=== PATIENT | male | born 1945 | race Caucasian/White ===

== ENCOUNTER 2020-01-09 09:19 | Inpatient (IN) | payer MEDICARE ==
[~2020-01-09] VITALS: Ht 180.3 cm; Wt 106.1 kg
[~2020-01-09 09:19] MED LIST: ASPIR 8181 MG PO; BENICAR20 MG; CIPRO500 MG PO; COLACE100 MG PO; COZAAR 50 MG TA50 M1 PO; FENOFIBRATE160 MG PO; FLAGYL500 MG PO; MOTILIUM; NEXIUM40 MG PO; PRILOSEC40 MG; SIMVASTATIN40 MG PO; TIMOLOL GL0.5 %/5 M1 OP; TOPROL XL25 MG PO; TOUJEO SOL300 UNIT/1 SQ; TRAVATAN Z2.5 ML OPHTHALMIC; TRESIBA FL100 UNIT/1 SUBQ; TUSSIONEX PENN473 ML PO; ZPAK PO; [UNRECOGNIZED DRUG - OTHER]
[2020-01-09 09:21] VITALS: BP 138/76
[2020-01-09] MEDS ORDERED: NOVOLOG100 UNIT/M SUBQ (09:25)
[2020-01-09 09:41] LABS: ABSOLUTE EOSINOPHILS 0.1 thou/uL (0.0-0.7); ABSOLUTE LYMPHOCYTES 2.7 thou/uL (0.8-5.3); ABSOLUTE MONOCYTES 0.5 thou/uL (0.0-1.2); ABSOLUTE NEUTROPHILS 2.9 thou/uL (1.6-8.1); BASOPHILS 0.6 %; EOSINOPHILS 1.7 %; LYMPHOCYTES 42.5 %; MCH 31.4 pg (26.0-34.0); MCV 92.1 fL (80.0-100.0); MONOCYTES 8.5 %; NUCLEATED RBCS 0 /100WBC; PLATELET COUNT* 124 thou/uL (150-400); POLYS 46.7 %; RBC 4.77 mil/uL (4.50-6.00); RDW-CV 14.7 % (10.5-14.5); WBC 6.3 thou/uL (4.0-11.0)
[2020-01-09 09:54] LABS: CALCIUM 9.2 mg/dL (8.5-10.1); CREATININE 1.9 mg/dL (0.6-1.3); POTASSIUM 4.3 mmol/L (3.5-5.1)
[2020-01-09 10:09] LABS: ALBUMIN 3.8 g/dL (3.4-5.0); CK-MB MASS 2.6 ng/mL (<0.5-3.6); MAGNESIUM 1.8 mg/dL (1.8-2.4); TOTAL BILIRUBIN 0.6 mg/dL (<0.1-1.0); TOTAL PROTEIN 7.5 g/dL (6.4-8.2)
[2020-01-09 10:19] LABS: INR 1.1; PROTIME 11.2 Seconds (9.20-11.50)
[2020-01-09 12:20] VITALS: BP 131/66
[2020-01-09 12:57] VITALS: BP 132/73
--- NOTE | 2020-01-09 13:04 | NUR ---
PT WAS ADMITTED FROM ED TO ROOM 215. PT AMBULATED TO BED. VSS, PT DENIES CHEST PAIN AT THIS TIME. MONITOR APPLIED. AT BEDSIDE. LAB CALLED WITH CRITICAL TROPONIN, REPORTED TO DR BRASHER.
[2020-01-09 16:34] VITALS: BP 141/76
[2020-01-09 16:35] VITALS: BP 123/62; BP 141/76
--- NOTE | 2020-01-09 17:07 | NUR ---
pt concerned about blood glucose being 195. states he normally takes 10 units with meals of short acting insulin plus sliding scale. all that is ordered is sliding scale for a total of 3 units. paged hospitalist research professional to get order for meal dose.
[2020-01-09 19:28] LABS: INR 1.1; PROTIME 11.7 Seconds (9.20-11.50)
[2020-01-09 19:29] LABS: ANION GAP 8 mmol/L (7-16); BUN 21 mg/dL (7-18); CALCIUM 9.2 mg/dL (8.5-10.1); CHLORIDE 107 mmol/L (98-107); CHOLESTEROL 123 mg/dL (<200); CO2 28 mmol/L (21-32); CREATININE 1.7 mg/dL (0.6-1.3); GLUCOSE 156 mg/dL (70-99); HDL CHOLESTEROL 35 mg/dL (>40); LDL CHOLESTEROL 64 mg/dL (<100); POTASSIUM 4.3 mmol/L (3.5-5.1); SODIUM 143 mmol/L (136-145); TC:HDL 3.5 Ratio (Not establshd); TRIGLYCERIDE 122 mg/dL (<150); VLDL 24 mg/dL (<40)
[2020-01-09 19:30] LABS: SERUM ASSESSMENT CLEAR
[2020-01-09 20:00] VITALS: BP 139/70
[2020-01-10] VITALS: BP 119/60
[2020-01-10 04:00] VITALS: BP 123/63
--- NOTE | 2020-01-10 05:13 | NUR ---
ASSESSMENT: PT REMAIN ALERT AND ORIENT TIMES FOUR. UP AD NBA WITH STEADY GAIT. DENIES CP, SOB AND N/V, VSS, AFEBRILE. PT WILL BE NPO TONIGHT FOR CATH WITH DR. FLORES. HEPARIN GTT AT 1280 UNITS. PTT SCHEDULUED FOR 629. TROP LEVEL ELEVATED = 112.34 Payton CAMPOS NOTIFIED. REPEAT TROP SCHEDULED FOR 629. SLOW PROGRESS TOWARDS DC GOALS, WILL CONTINUE TO MONITOR.
[2020-01-10 06:45] LABS: HEMATOCRIT 40.3 % (42.0-52.0); HEMOGLOBIN 13.8 gm/dL (14.0-18.0); MCH 31.2 pg (26.0-34.0); MCHC 34.2 g/dL (28.0-37.0); MCV 91.2 fL (80.0-100.0); MPV 9.3 fl. (7.2-11.1); RBC 4.42 mil/uL (4.50-6.00); RDW-CV 14.5 % (10.5-14.5); WBC 7.9 thou/uL (4.0-11.0)
[2020-01-10 07:06] LABS: CALCIUM 8.5 mg/dL (8.5-10.1); CREATININE 1.6 mg/dL (0.6-1.3); MAGNESIUM 1.6 mg/dL (1.8-2.4); POTASSIUM 4.4 mmol/L (3.5-5.1)
[2020-01-10 07:55] LABS: TROPONIN-I LEVEL 76.44 ng/mL (<0.06)
[2020-01-10 08:00] VITALS: BP 128/64
--- NOTE | 2020-01-10 14:04 | EKG ---
[place] [address] ELECTROCARDIOGRAM REPORT Name: ADDISON BARNARD Room: [address] ADM IN .R.#: [id number] Admission: 01/09/20 Attend Phys: Bhargavi Ortiz, Discharge: Date of : 45 Date of Service: 01/09/20 0922 Report #: [id number] THIS REPORT FOR: //name// [facility] ED Test Date: 2020-01-09 Test Time: 09:22:20 Pat Name: ADDISON BARNARD Department: Room: [facility] Gender: M Supply Specialist: DS : 1945 Requested By: Jason Goss Order Number: [id number] MD: Duke Aceves Measurements Intervals [place] Rate: 46 P: 0 CA: 70 QRS: 6 QRSD: 109 T: 21 QT: 453 QTc: 397 Interpretive Statements Sinus bradycardia Short [place] interval Compared to ECG 11/02/2016 09:13:55 Short CA interval now present Electronically Signed On 01-10-2020 14:04:08 ADJUNCT INSTRUCTOR CHEMISTRY by Duke Aceves [email or web address] <ELECTRONICALLY SIGNED> By: Duke Aceves MD, FACC 01/10/20 1404 1 1 Duke Aceves MD, FAC /EPI
[2020-01-10 16:04] VITALS: BP 121/62
[2020-01-10 20:00] VITALS: BP 141/68
[2020-01-11] VITALS (24 sets, daily range): BP systolic 90–140; BP diastolic 51–81
[2020-01-11 05:20] LABS: HEMATOCRIT 38.5 % (42.0-52.0); HEMOGLOBIN 13.2 gm/dL (14.0-18.0); MCH 31.3 pg (26.0-34.0); MCHC 34.2 g/dL (28.0-37.0); MCV 91.5 fL (80.0-100.0); MPV 9.3 fl. (7.2-11.1); RBC 4.2 mil/uL (4.50-6.00); RDW-CV 14.3 % (10.5-14.5); WBC 6.9 thou/uL (4.0-11.0)
[2020-01-11 05:39] LABS: CALCIUM 8.6 mg/dL (8.5-10.1); CREATININE 1.8 mg/dL (0.6-1.3); POTASSIUM 3.7 mmol/L (3.5-5.1)
[2020-01-11 05:44] LABS: TROPONIN-I LEVEL 31.29 ng/mL (<0.06)
--- NOTE | 2020-01-11 13:18 | NUR ---
Pt is A&O. Resides at home with , in room at bedside. Active and independent. No DME. No hx of HH or SNF. Goal is home at dc. Pt had a cath today, may need CABG in near future. Following.
--- NOTE | 2020-01-11 14:37 | 2DMMODE ---
[place] [address] 2 D/M-MODE ECHOCARDIOGRAM Name: ADDISON BARNARD Room: [address] IN [facility]#: [id number] Admission: 01/09/20 Attend Phys: Bhargavi Ortiz, Discharge: Date of : 45 Date of Service: 01/11/20 1437 Report #: [id number] THIS REPORT FOR: cc: FAM - No family physician/PCP FAM - No family physician/PCP Kevin Omalley MD [facility] ~ APPROVED REPORT Study performed: 01/11/2020 11:11:14 EXAM: Comprehensive 2D, Doppler, and color-flow Echocardiogram Patient Location: In-Patient Room #: [facility] Status: routine BSA: 2.26 HR: 52 bpm BP: 102/72 mmHg Rhythm: NSR Other Information Study Quality: Good Indications Non STEMI 2D Dimensions IVSd: 10.14 (7-11mm) LVOT Diam: 20.03 (18-24mm) LVDd: 50.55 mm PWd: 11.32 (7-11mm) Ascending Ao: 33.10 (22-36mm) LVDs: 34.62 (25-40mm) Aortic Root: 34.29 mm Volumes Left Atrial Volume (Systole) LA ESV Index: 20.20 mL/m2 Aortic Valve AoV Peak Thuan.: 1.04 m/s AO Peak Gr.: 4.36 mmHg LVOT Max P.71 mmHg AO Mean Gr.: 2.17 mmHg LVOT Mean P.07 mmHg LVOT Max V: 1.09 m/s AO V2 VTI: 19.23 cm LVOT Mean V: 0.66 m/s ABHILASH (VTI): 3.61 cm2 LVOT V1 VTI: 22.01 [place] [address] 2 D/M-MODE ECHOCARDIOGRAM Name: ADDISON BARNARD Room: [address] IN [facility].#: [id number] Admission: 01/09/20 Attend Phys: Bhargavi Ortiz, Discharge: Date of : 45 Date of Service: 01/11/20 1437 Report #: [id number] Mitral Valve E/A Ratio: 0.61 MV Decel. Time: 355.89 ms MV E Max Thuan.: 0.71 m/s MV PHT: 103.21 ms MVA (PHT): 2.13 cm2 TDI E/Lateral E': 7.89 E/Medial E': 10.14 Medial E' Thuan.: 0.07 m/s Lateral E' Thuan.: 0.09 m/s Pulmonary Valve PV Peak Thuan.: 0.86 m/s PV Peak Gr.: 2.93 mmHg Left Ventricle The left ventricle is normal size. There is normal LV segmental wall motion. There is normal left ventricular wall thickness. Left ventricular systolic function is normal. The left ventricular ejection fraction is within the normal range. LVEF is 55-60%. Grade I - abnormal relaxation pattern. Right Ventricle The right ventricle is normal size. The right ventricular systolic function is normal. Atria The left atrium size is normal. The right atrium size is normal. Aortic Valve The aortic valve is normal in structure. No aortic regurgitation is present. There is no aortic valvular stenosis. Mitral Valve The mitral valve is normal in structure. Trace mitral regurgitation. No evidence of mitral valve stenosis. Tricuspid Valve The tricuspid valve is normal in structure. Trace tricuspid regurgitation. Unable to assess PA pressure. Pulmonic Valve The pulmonary valve is normal in structure. There is no pulmonic [place] [address] 2 D/M-MODE ECHOCARDIOGRAM Name: ADDISON BARNARD Room: [address] IN [facility]#: [id number] Admission: 01/09/20 Attend Phys: Bhargavi Ortiz, Discharge: Date of : 45 Date of Service: 01/11/20 1437 Report #: [id number] Great Vessels The aortic root is normal in size. IVC is normal in size and collapses >50% with inspiration. Pericardium There is no pericardial effusion. <Conclusion> The left ventricle is normal size. There is normal left ventricular wall thickness. Left ventricular systolic function is normal. The left ventricular ejection fraction is within the normal range. LVEF is 55-60%. Grade I - abnormal relaxation pattern. The right ventricle is normal size. The left atrium size is normal. The aortic valve is normal in structure. The mitral valve is normal in structure. Trace mitral regurgitation. The tricuspid valve is normal in structure. IVC is normal in size and collapses >50% with inspiration. There is no pericardial effusion. There is normal LV segmental wall motion. <ELECTRONICALLY SIGNED> By: Kevin Omalley MD, FACC 01/11/20 1437 1437 1437 Kevin Omalley MD, FACC /INF
--- NOTE | 2020-01-11 16:00 | CARD ---
[address] [address] CARDIAC CATH REPORT Name: ADDISON BARNARD Room: [address] IN [facility]#: [id number] Admission: 01/09/20 Attend Phys: Bhargavi Ortiz MD Discharge: Date of : 45 Report #: [id number] THIS REPORT FOR: //name// cc: BJ - No family physician/PCP BJ - No family physician/PCP ~ APPROVED REPORT Study performed: 01/11/2020 09:28:00 Patient Details Patient Status: In-Patient Room #: 215 The patient is a 74 year-old male Event Personnel Kevin Omalley Shoulder Sawyer, Mirtha Bellamy RN Client Service Coordinator, Katarina Concepcion RTR Monitor, Evangelista Villanueva RTR Scrub Procedures Performed Art Access - R femoral artery, Left Heart Cath w/or w/o Coronaries LHC, Hemostasis w/ Mynx Indication Non-STEMI Risk Factors Hypercholesterolemia Previous Procedures/Diagnoses Previous PCI Procedure Narrative The patient was brought urgently to the Cardiac Catheterization Laboratory and was prepped and draped in a sterile manner. The right femoral was infiltrated with 2% Lidocaine subcutaneous anesthesia. A 6Fr X 23cm Brite tip sheath was inserted into the right femoral artery. Coronary angiography was performed using coronary diagnostic catheters. The right coronary system was accessed and visualized with a 6F 3DRC catheter. The left coronary system was accessed and visualized with a 6F JL4 catheter. The left ventricle was accessed and visualized with a 6F Straight Pigtail catheter. Left ventricular/Aortic Valve gradient assessed via catheter pullback. Pre-demployment femoral angiogram was performed . Closure device was deployed with a 6 Fr Mynx. The patient tolerated the procedure well and there were no complications [place] [address] CARDIAC CATH REPORT Name: ADDISON BARNARD Room: [address] IN [facility]#: [id number] Admission: 01/09/20 Attend Phys: Bhargavi Ortiz MD Discharge: Date of : 45 Report #: [id number] was no hematoma. A 6F Russell sheath was initially inserted into the right femoral artery. Due to tortuosity, the sheath was exchanged for a 6F, 23cm Brite tip sheath. Intraoperative Conscious Sedation Sedation start time: 09:58 Case end Time: 10:34 Fentanyl 25 mcg Versed 1 mg Fluoro Time: 7.3 minutes Dose: DAP 49829 cGycm2 890 mGy Contrast Type and Amount: Visipaque 70 ml Coronary Angiography The patient's coronary anatomy is right dominant. Diagnostic Cath Left Main 60% calcified distal left main coronary stenosis LAD 80 to 90% calcified proximalmid LAD stenosis Circumflex 75% ostial proximal calcified stenosis with 90% stenosis in the proximalmidportion of the prominent first marginal branch Right Coronary Dominant vessel with 80 to 90% tubular proximalmid vessel narrowing with total occlusion just beyond the acute margin with [id number] collaterals filling a skeleton of the distal right coronary system Left Ventriculography Left Ventriculography was not performed. Hemodynamics The aortic pressure is 120/52 mmHg with a mean of 80 mmHg. The left ventricular pressure is 120/0 mmHg with a mean of mmHg. The left ventricular end diastolic pressure is 17 mmHg. Conclusion 1. Severe multivessel coronary artery disease characterized by the following: A 60% calcified distal left main coronary stenosis B 80-90% calcified proximalmid LAD stenosis C nondominant circumflex with 75% ostial proximal narrowing and 90% tubular stenosis of the proximalmidportion of the first marginal [place] [address] CARDIAC CATH REPORT Name: ADDISON BARNARD Room: [address] IN [facility]#: [id number] Admission: 01/09/20 Attend Phys: Bhargavi Ortiz MD Discharge: Date of : 45 Report #: [id number] D dominant right coronary which is totally occluded just beyond the acute margin with [id number] collaterals filling a skeleton of the distal right coronary system 2. Modest elevation of left ventricular end-diastolic pressure at rest Recommendations Cardiac Risk Reduction Program CABG Diagnostic Cath Approved by: Kevin Omalley MD Date/Time: 01/11/2020 15:58:13 <ELECTRONICALLY SIGNED> By: Kevin Omalley MD, FACC 01/11/20 1600 1600 1600Joalicia Omalley MD, [facility] /INF
--- NOTE | 2020-01-11 16:35 | EKG ---
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 <ELECTRONICALLY SIGNED> By: Kevin Omalley MD, [facility] 01/11/20 1634 1333 1333 Kevin Omalley MD, [facility] /EPI
--- NOTE | 2020-01-11 21:01 | NUR ---
I ASSUMED CARE OF THE PATIENT AT 0700. HE IS ALERT AND ORIENTED X4 AND IS UP AD NBA. BED IS IN THE LOW LOCKED POSITION AND CALL LIGHT IS IN REACH. HOURLY ROUNDING IS COMPLETED AND PATIENT NEEDS ARE MET. PAIN IS MANAGED WITH PRN MEDS. PATIENT HAD A CARDIAC CATH AND WILL NEED A CABG IN A FEW WEEKS. SITE IS APPRORIATE AND VITALS WERE PLACED IN EMAR. FLUIDS ARE RUNNING. WILL CONTINUE TO MONITOR. HE IS TOLERATING AMBULATION AND DIET ORDERS
[2020-01-12] VITALS: BP 116/64
[2020-01-12 04:00] VITALS: BP 105/72
[2020-01-12 04:38] LABS: CALCIUM 8.8 mg/dL (8.5-10.1); CREATININE 1.7 mg/dL (0.6-1.3); POTASSIUM 3.8 mmol/L (3.5-5.1)
[2020-01-12 04:40] LABS: ABSOLUTE EOSINOPHILS 0.1 thou/uL (0.0-0.7); ABSOLUTE LYMPHOCYTES 1.6 thou/uL (0.8-5.3); ABSOLUTE MONOCYTES 0.7 thou/uL (0.0-1.2); BASOPHILS 0.2 %; EOSINOPHILS 0.9 %; HEMATOCRIT 38.2 % (42.0-52.0); LYMPHOCYTES 25.4 %; MCH 31.2 pg (26.0-34.0); MCV 91.9 fL (80.0-100.0); MONOCYTES 10.3 %; MPV 9.6 fl. (7.2-11.1); NUCLEATED RBCS 0 /100WBC; PLATELET COUNT* 102 thou/uL (150-400); POLYS 63.2 %; RBC 4.16 mil/uL (4.50-6.00); RDW-CV 14.5 % (10.5-14.5); WBC 6.4 thou/uL (4.0-11.0)
--- NOTE | 2020-01-12 06:10 | NUR ---
PT CARE ASSUMED AT 1930. SAT MAINTAINED IN RA. ALERT AND ORIENTED X4. DENIES PAIN AND SOB. CALL LIGHT WITHIN REACH AND BED IN LOW POSITION. HOURLY ROUNDING DONE FOR PT SAFETY. CATH SITE C/D/I.
[2020-01-12 08:45] VITALS: BP 149/77
--- NOTE | 2020-01-12 08:51 | CON ---
[address] [address] CONSULTATION Name: ADDISON BARNARD Room: [address] IN ..#: [id number] Admission: 01/09/20 Attend Phys: Bhargavi Ortiz MD Discharge: Date of : 45 Report #: [id number] THIS REPORT FOR: //name// cc: BJ - No family physician/PCP BJ - No family physician/PCP ~ DATE OF SERVICE: 01/09/2020 CARDIOLOGY CONSULTATION INDICATION: Chest pain and enzyme evidence of non-ST elevation myocardial infarction. HISTORY OF PRESENT ILLNESS: The patient is a very pleasant 74-year-old gentleman who has been relatively stable until this morning. He has a history of stents placed in 1999, at which time he had three stents placed. His most recent catheterization a few years ago showed a chronically occluded right coronary artery, but no other significant disease. This morning, the patient had midsternal chest discomfort radiating to his left and right arms associated with shortness of breath, diaphoresis and mild nausea. The patient presented to the Emergency Room for further evaluation. The pain has gradually resolved. Initial enzymes were unremarkable. Subsequent troponin was 1.77 consistent with non-ST elevation myocardial infarction. EKG showed sinus rhythm without acute ST elevation. PAST MEDICAL HISTORY: 1. Coronary artery disease. 2. Insulin requiring diabetes. 3. Primary essential hypertension. 4. Hyperlipidemia. FAMILY HISTORY: Noncontributory. SOCIAL HISTORY: The patient is a lifelong nonsmoker. He does not drink alcohol. CURRENT MEDICATIONS: Aspirin 81 mg daily, Nexium 40 mg daily, insulin 5 units before meals, Tresiba 16 units at night, Xalatan eyedrops nightly, Linzess 145 mcg as directed, Cozaar 50 mg daily, Toprol-XL 25 mg daily, simvastatin 40 mg daily, Januvia 100 mg daily, timolol eye drops as directed. ALLERGIES: None documented. REVIEW OF SYSTEMS: A 14-point review of systems otherwise negative. PHYSICAL EXAMINATION: VITAL SIGNS: Stable. Blood pressure 132/73, pulse 55 [place] [address] CONSULTATION Name: ADDISON BARNARD Room: [address]#: [id number] Admission: 01/09/20 Attend Phys: Bhargavi Ortiz MD Discharge: Date of : 45 Report #: [id number] GENERAL: This is a pleasant gentleman in no distress. Mood and affect appropriate. HEENT: Extraocular muscles intact. Mucous membranes are moist. NECK: Shows no jugular venous distention. There are no carotid bruits. CHEST: Reveals clear lung allen without wheezes or rales. CARDIOVASCULAR: Reveals a regular rhythm, normal S1 and S2. I do not appreciate gallop or murmur. ABDOMEN: Reveals normal bowel sounds. The abdomen is soft and nontender. EXTREMITIES: Shows no edema. Peripheral pulses 2+ and palpable. SKIN: Dry. LABORATORY DATA: Reviewed. Sodium 140, potassium 4.3, chloride 106, bicarbonate 25, BUN 24, creatinine 1.9, serum glucose 195. LFTs are within normal limits. Troponin initially was less than 0.06 and subsequently 1.77. White blood cell count 6.3, hemoglobin 15.0, platelet count 124,000. IMPRESSION AND RECOMMENDATIONS: 1. Non-ST elevation myocardial infarction. Continue home medications as outlined above. We will add heparin drip per Cardiology protocol with bolus. Plan invasive evaluation in the near future. 2. Dyslipidemia. Continue Zocor. Check fasting lipid profile. 3. Hypertension. Blood pressure adequately controlled on home medications. 4. Diabetes per hospitalist. <ELECTRONICALLY SIGNED> By: Duke Aceves MD, FACC 01/12/20 0851 1553 [id number] Hospitalneyda Aceves MD, FACC /nt
[2020-01-12 11:03] VITALS: BP 118/65
[2020-01-12 14:14] VITALS: BP 118/65
--- NOTE | 2020-01-12 21:30 | NUR ---
PT HAS REMAINED ALERT, ORIENTED AND COOPERATIVE. NO C/O PAIN OR DISTRESS. IV AND TELEMETRY DC'D INTACT. REVIEWED DISMISSAL INSTRUCTIONS WITH PATIENT AND HIS . BOTH VERBALIZE UNDERSTANDING. AT TIME OF DISHCARGE PT IS PAIN FREE. TO EXIT VIA WHEELCHAIR. PT TO BE TRANSPORTED HOME BY HIS . STABLE AT THIS TIME
== END 2020-01-12 14:37 | disposition home or self-care (01) | DRG 280 ==
LOC: M.ERS 09:19 → M.2W 11:10 → M.TBA-ER 11:10 → M.2W 12:22
PROVIDERS: Family Medicine; Internal Medicine; Internal Medicine Cardiovascular Disease; ADMIT Internal Medicine; ATTEND Internal Medicine
PROC: 4A023N7 Measurement of Cardiac Sampling and Pressure, Left Heart, Percutaneous Approach (ICD-10-PCS; principal; 2020-01-11)
PROC: B211YZZ Fluoroscopy of Multiple Coronary Arteries using Other Contrast (ICD-10-PCS; principal; 2020-01-11)
DX: I21.4 Non-ST elevation (NSTEMI) myocardial infarction (principal); N17.0 Acute kidney failure with tubular necrosis; I50.31 Acute diastolic (congestive) heart failure; I13.0 Hypertensive heart and chronic kidney disease with heart failure and stage 1 through stage 4 chronic kidney disease, or unspecified chronic kidney disease; E78.5 Hyperlipidemia, unspecified; I25.10 Atherosclerotic heart disease of native coronary artery without angina pectoris; E11.43 Type 2 diabetes mellitus with diabetic autonomic (poly)neuropathy; K31.84 Gastroparesis; E11.22 Type 2 diabetes mellitus with diabetic chronic kidney disease; N18.9 Chronic kidney disease, unspecified; Z20.828 Contact with and (suspected) exposure to other viral communicable diseases; Z96.1 Presence of intraocular lens; I25.2 Old myocardial infarction; Z95.5 Presence of coronary angioplasty implant and graft; Z98.42 Cataract extraction status, left eye; Z98.41 Cataract extraction status, right eye; Z79.82 Long term (current) use of aspirin; Z79.899 Other long term (current) drug therapy; Z79.4 Long term (current) use of insulin

== ENCOUNTER → 2020-10-28 | Outpatient (CLI) | payer MEDICARE ==
[~2020-10-28] MED LIST changes: +NOVOLOG100 UNIT/M SUBQ
== END ==
LOC: M.ULTRA 06:59
PROVIDERS: ATTEND Internal Medicine
DX: N28.9 Disorder of kidney and ureter, unspecified (principal)